=== PATIENT | male | born 1980 | race American Indian/Alaskan Native ===

== ENCOUNTER 2017-01-07 04:37 | Emergency (ER) | payer SELFPAY ==
[2017-01-07 05:11] VITALS: BP 143/101
[2017-01-07 05:44] LABS: Basophils % (Auto) 0.7 % (0.0-1.8); Eosinophils % (Auto) 3.7 % (0.0-4.3); Hematocrit 43.3 % (35.5-45.6); Hemoglobin 14.4 gm/dl (11.8-15.2); Mean Corpuscular HGB Conc 33 % (32-34); Mean Corpuscular Hemoglobin 30 pg (28-32); Mean Corpuscular Volume 91 fl (84-94); Platelet Count 270 K/mm3 (140-440); Red Blood Count 4.78 M/mm3 (3.65-5.03); Red Cell Distribution Width 14.8 % (13.2-15.2); White Blood Count 7.6 K/mm3 (4.5-11.0)
[2017-01-07 05:57] LABS: Anion Gap 20 mmol/L; BUN/Creatinine Ratio 12.22; Blood Urea Nitrogen 11 mg/dL (9-20); Calcium 9.3 mg/dL (8.4-10.2); Carbon Dioxide 22 mmol/L (22-30); Chloride 104.3 mmol/L (98-107); Glucose 96 mg/dL (75-100); Potassium 4.1 mmol/L (3.6-5.0); Sodium 142 mmol/L (137-145)
--- NOTE | 2017-01-08 07:28 | ED Elopement Review ---
ED Pt Elopement review - Results review Lab results: Laboratory Tests 01/07/17 01/07/17 05:14 05:14 WBC 7.6 RBC 4.78 Hgb 14.4 Hct 43.3 MCV 91 MCH 30 MCHC 33 RDW 14.8 Plt Count 270 Lymph % (Auto) 46.3 H Andrews % (Auto) 6.3 Eos % (Auto) 3.7 Baso % (Auto) 0.7 Lymph # 3.5 Andrews # 0.5 Eos # 0.3 Baso # 0.0 Seg Neutrophils % 43.0 Seg Neutrophils # 3.3 Sodium 142 Potassium 4.1 Chloride 104.3 Carbon Dioxide 22 Anion Gap 20 BUN 11 Creatinine 0.9 Estimated GFR > 60 BUN/Creatinine Ratio 12.22 Glucose 96 Calcium 9.3 Troponin T < 0.010 - Call Back decision Pt Call Back Decision: No action required (EKG ok)
== END 2017-01-07 05:30 | disposition left against medical advice (07) ==
LOC: ED 04:37
DX: R07.9 Chest pain, unspecified (principal); R06.09 Other forms of dyspnea; Z53.21 Procedure and treatment not carried out due to patient leaving prior to being seen by health care provider
CPT/HCPCS: 36415; 80048; 84484; 85025; 93005; 93010